=== PATIENT | female | born 1995 | race Caucasian/White ===

== ENCOUNTER 2019-02-06 00:46 | Emergency (ER) | payer OTHER ==
[2019-02-06] VITALS (7 sets, daily range): BP systolic 122–142; BP diastolic 60–94
[~2019-02-06] VITALS: Ht 172.7 cm; Wt 72.6 kg
[~2019-02-06 00:46] MED LIST: FERR-39 PO; PNV1TABL4 PO; PNV51CAP2 PO
[2019-02-06] MEDS ORDERED: FUL-GLO OP ONE (00:50)
[2019-02-06] MEDS ORDERED: TETRACAINE 0.5% EYE DROPS ONE ×2 (00:59→01:15)
[2019-02-06] MEDS ORDERED: TETRACAINE 0.5% EYE DROPS BOTH EYES STA (01:00)
--- NOTE | 2019-02-06 01:00 | NUR ---
. DR. GONZALEZ AT BEDSIDE
--- NOTE | 2019-02-06 01:07 | NUR ---
PD [facility] [facility] AT BEDSIDE
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
--- NOTE | 2019-02-06 01:25 | NUR ---
DR. DR. GONZALEZ AT BEDSIDE FOR EYE EXAM AND WAS ABLE TO REMOVE SOME GLASS FROM PATIENTS EYE THEN PATIENT TAKEN TO CT SCAN.
[2019-02-06] MEDS ORDERED: MORPHINE SULFATE IV STA (01:44)
[2019-02-06] MEDS ORDERED: CLEOCIN 600 MG-D5W-GALAXY 50 ML IV ONE (01:45)
[2019-02-06] MEDS ORDERED: [UNRECOGNIZED DRUG - OTHER] IV ONE (01:45)
[2019-02-06] MEDS ORDERED: CLEOCIN IV ONE (01:45)
[2019-02-06] MEDS ORDERED: BOOSTRIX TDAP IM ONE ×2 (01:46→02:00)
[2019-02-06] MEDS ORDERED: MORPHINE SULFATE ONE (01:49)
[2019-02-06] MEDS ORDERED: NS 1000ML 1,000 ML ONE (01:50)
--- NOTE | 2019-02-06 01:53 | NUR ---
UPDATE DR. GONZALEZ ON THE PHONE WITH OPTHALMOLOGIST.
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
[2019-02-06 02:05] LABS: BASOPHIL % 0.4 % (0.0-0.2); EOSINOPHIL # 0.1 10^3/uL (0.0-0.2); HEMOGLOBIN 13.1 g/dL (12.0-15.0); LYMPHOCYTES # 1.7 10^3/uL (1.0-4.8); LYMPHOCYTES % 17.8 % (24.0-44.0); MEAN CELL HGB 30.5 pg (26-34); MEAN CELL HGB CONCENTRATION 33.7 g/dL (33-37); MEAN CORP VOLUME 90.7 fL (78-100); MEAN PLATELET VOLUME 9.1 fL (7.8-11.0); MONOCYTES # 0.5 10^3/uL (0.3-0.8); MONOCYTES % 5.5 % (5.0-12.0); NEUTROPHILS % 75.1 % (41.0-85.0); RED CELL DISTRIBUTION WIDTH 13.1 % (11.5-14.5); WHITE BLOOD CELL 9.4 10^3/uL (4.5-11.0)
[2019-02-06 02:09] LABS: BILIRUBIN,URINE NEGATIVE (NEGATIVE); UROBILINOGEN,URINE NORMAL (NEGATIVE)
--- NOTE | 2019-02-06 02:13 | NUR ---
UPDATE RECEIVED RETURN CALL FROM OPTHALMOLOGIST TRANSFERRED CALL TO DR. GONZALEZ.
--- NOTE | 2019-02-06 02:15 | NUR ---
MED VERBAL INSTRUCTION BY DR. GONZALEZ TO ONLY INFUSE THE 600MG OF CLINDAMYCIN AT THIS TIME SINCE PATIENT NEEDS TO BE DISCHARGED MIREYA TO TRAVEL TO OPTHALMOLOGIST OFFICE.
[2019-02-06 02:24] LABS: APPEARANCE,URINE CLEAR (CLEAR); UA COLOR YELLOW (YELLOW)
[2019-02-06 02:35] LABS: CALCIUM 9.1 mg/dL (8.4-10.5); CARBON DIOXIDE 23.7 mmol/L (20.0-32)
--- NOTE | 2019-02-06 02:35 | NUR ---
LAB WAITING FOR CMP NO RESULTS OF NOW. CALLED LAB AND THEY ARE WORKING ON RESULTS NOW.
--- NOTE | 2019-02-06 02:50 | NUR ---
IV IV REMOVED CATHETER WAS ALL INTACT. APPLIED PRESSURE AND NO FURHTER BLEEDING. COVERED WITH BAND AID.
[2019-02-06] MEDS ORDERED: CLEOCIN 900 MG-D5W-GALAXY 50 ML IV SCH (06:00)
== END 2019-02-06 02:53 | disposition other institution (70) ==
LOC: ER 00:46 → EDBD 00:46 → ER 02:53
DX: S05.52XA Penetrating wound with foreign body of left eyeball, initial encounter (principal); S05.51XA Penetrating wound with foreign body of right eyeball, initial encounter; W34.09XA Accidental discharge from other specified firearms, initial encounter; Y93.89 Activity, other specified; Y92.488 Other paved roadways as the place of occurrence of the external cause; Y99.8 Other external cause status; Z88.0 Allergy status to penicillin
CPT/HCPCS: 36415; 70450; 70486; 80053; 81000; 84703; 85025; 85610; 85730; 87086; 90471; 90715; 96365; 96375; 99285; J2270; J7030; J3490